=== PATIENT | male | born 1950 | race Caucasian/White ===

== ENCOUNTER 2023-04-13 07:15 | Outpatient (CLI) | payer MEDICARE, OTHER ==
--- NOTE | 2023-04-14 09:58 | MRI Report ---
PROCEDURE: KNEE WO - LT INDICATIONS: LEFT KNEE INTERNAL DERANGEMENT TECHNIQUE: Noncontrast sagittal PD fast spin echo and T2 fast spin echo with fat saturation, sagittal 3-D gradie nt sequence with fat saturation; coronal T1 spin echo and PD fast spin echo with fat saturation, and axial PD fast spin echo with fat saturation through the knee. COMPARISON: None. FINDINGS: Image quality: Excellent. Menisci: There is oblique tear of the posterior horn the medial meniscus extending to the inferior ar ticular surface. There is horizontal tear in the posterior horn and body of the lateral meniscus. There is ill-defined tear involving the anterior root of the lateral meniscus. Cruciate ligaments: The anterior and posterior cruciate ligaments appear intact. Medial structures: The medial collateral ligament appears intact. The semimembranosus tendon insert ions and meniscocapsular junction appear intact. Visualized portions of the pes anserinus tendons ap pear normal. No abnormal bursal fluid. Lateral structures: The lateral collateral ligament and the biceps femoris tendon appear intact. Th e popliteus tendon appears normal. Iliotibial band appears normal. Anterior structures: The quadriceps and patellar tendons appear intact. There is moderate quadricep s tendinitis. Patellar alignment is normal. No femoral trochlear dysplasia or ventral trochlear prom inence. There is edema in the medial aspect of the suprapatellar fat pad. There is nonspecific soft tissue edema in the suprapatellar soft tissue. Bones and cartilage: No bone marrow contusions or fractures. Edema and cystic changes in the superio r medial aspect of patella. Mild tricompartmental cartilage thinning and fibrillation. Joint space: There is small knee joint fluid. No Brock's cyst. Normal appearing synovial plicae ar e incidentally noted. IMPRESSION: 1. Oblique tear of the posterior horn the medial meniscal meniscus. 2. Horizontal tear of the posterior horn and body of the lateral meniscus. There is also tear of the anterior root of the lateral meniscus. 3. Moderate quadriceps tendinitis. 4. Edema in the medial aspect of the suprapatellar fat pad associated bone marrow edema and cystic ch rayshawn in the superior medial aspect of patella, suggesting suprapatellar fat pad impingement. 5. Small knee joint effusion. Reviewed by: David Giraldo MD on 04/14/2023 9:57 AM PDT Approved by: David Giraldo MD on 04/14/2023 9:57 AM PDT Station ID: [id number]
== END 2023-04-13 07:16 | disposition home or self-care (01) ==
LOC: DI 07:15
PROVIDERS: ATTEND Orthopaedic Surgery
DX: S83.242A Other tear of medial meniscus, current injury, left knee, initial encounter (principal); S83.282A Other tear of lateral meniscus, current injury, left knee, initial encounter; M76.892 Other specified enthesopathies of left lower limb, excluding foot; R60.0 Localized edema; M25.462 Effusion, left knee